=== PATIENT | male | born 1995 | race African-American/Black ===

== ENCOUNTER 2017-08-30 08:39 | Emergency (ER) | payer MEDICAID ==
[~2017-08-30] VITALS: Ht 182.9 cm; Wt 87.0 kg
[~2017-08-30 08:39] MED LIST: ALBU2.5V13
[2017-08-30] MEDS ORDERED: IBUPROFEN 600MG TABLET PO ONE (11:45)
[2017-08-30 11:52] LABS: CLARITY URINE CLEAR (CLEAR); COLOR URINE YELLOW (YELLOW); KETONES URINE TRACE (NEGATIVE); LEUKOCYTE ESTERASE URINE NEGATIVE (NEGATIVE); NITRITE URINE NEGATIVE (NEGATIVE); OCCULT BLOOD URINE NEGATIVE (NEGATIVE); PH URINE 6.5 (4.5-8.0); PROTEIN URINE NEGATIVE (NEGATIVE); SPECIFIC GRAVITY URINE 1.019 (1.005-1.030); UROBILINOGEN URINE 0.2 E.U./dL (0.2-1.0)
[2017-08-30 12:50] VITALS: BP 131/72
== END 2017-08-30 13:18 | disposition home or self-care (01) ==
LOC: ER 08:39
DX: M54.5 Low back pain (principal); R20.2 Paresthesia of skin; R10.9 Unspecified abdominal pain; F12.10 Cannabis abuse, uncomplicated
CPT/HCPCS: 81003; 99283

== ENCOUNTER 2017-09-06 18:36 | Emergency (ER) | payer MEDICAID ==
[~2017-09-06] VITALS: Ht 182.9 cm; Wt 81.0 kg
[2017-09-06] MEDS ORDERED: KETOROLAC 60MG/2ML VIAL IM ONE (20:30)
[2017-09-06 20:36] LABS: CLARITY URINE CLEAR (CLEAR); COLOR URINE YELLOW (YELLOW); KETONES URINE NEGATIVE (NEGATIVE); LEUKOCYTE ESTERASE URINE NEGATIVE (NEGATIVE); NITRITE URINE NEGATIVE (NEGATIVE); OCCULT BLOOD URINE NEGATIVE (NEGATIVE); PH URINE 7.5 (4.5-8.0); PROTEIN URINE NEGATIVE (NEGATIVE); UROBILINOGEN URINE 0.2 E.U./dL (0.2-1.0)
[2017-09-06 20:50] VITALS: BP 123/77
== END 2017-09-06 20:58 | disposition home or self-care (01) ==
LOC: ER 18:36
DX: S39.012A Strain of muscle, fascia and tendon of lower back, initial encounter (principal); F12.10 Cannabis abuse, uncomplicated; W50.0XXA Accidental hit or strike by another person, initial encounter; Y93.67 Activity, basketball; Y92.89 Other specified places as the place of occurrence of the external cause; Y99.8 Other external cause status
CPT/HCPCS: 81003; 96372; 99283; J1885